=== PATIENT | female | born 1990 | race Caucasian/White ===

== ENCOUNTER 2022-02-10 13:42 | Emergency (ER) | payer SELFPAY ==
[2022-02-10] MEDS ORDERED: OLANZapine 5 MG Tab PO ONE (13:59)
[2022-02-10 14:43] LABS: BLOOD UREA NITROGEN,BUN 15 mg/dL (7.0-18.0); CHLORIDE,CL 105 mmol/L (98-107); GLUCOSE RANDOM 68 mg/dL (74-106); POTASSIUM,K 3.9 mmol/L (3.5-5.1); SODIUM,NA 140 mmol/L (136-145)
[2022-02-10 14:50] LABS: ESTIMATED GFR 122 mL/min (>60)
[2022-02-10] MEDS ORDERED: LORazepam 2 MG/ML SDV IM ONE (16:29)
[2022-02-10] MEDS ORDERED: OLANZapine 10 MG in Water For Injection, Sterile 2.1 ML IM ONE (16:29)
[2022-02-10] MEDS ORDERED: diphenhydrAMINE 50 MG/ML SDV IM ONE (16:29)
== END 2022-02-10 17:40 ==
LOC: MW.ED 13:42
DX: F29 Unspecified psychosis not due to a substance or known physiological condition (principal)
CPT/HCPCS: 36415; 80053; 80305; 80307; 81025; 85025; 99284; A9270